=== PATIENT | male | born 1940 | race Caucasian/White ===

== ENCOUNTER 2020-08-26 18:06 | Emergency (ER) | payer MEDICARE ==
[~2020-08-26 18:06] MED LIST: Amiodarone 150 MG/3 ML VIAL ONE; Calcium Chloride 1 GM/10 ML Abboject SYRINGE ONE; EPINEPHrine 1 MG/10 ML Abboject SYRINGE ONE; Sodium Bicarb 50 MEQ/50 ML Abboject 8.4% SYRINGE ONE
== END 2020-08-26 18:21 | disposition expired ==
LOC: EDBD 18:06 → ERS 18:06
DX: I46.9 Cardiac arrest, cause unspecified (principal)
CPT/HCPCS: 31500; 36416; 92950; 96374; 96375; J0171; J0282